=== PATIENT | female | born 1980 | race Caucasian/White ===

== ENCOUNTER 2018-03-29 11:28 | Outpatient (CLI) | payer OTHER ==
[2018-03-29 13:19] LABS: #Eosinphils 0.3 thou/uL (0.0-0.7); #Lymphocytes 2.3 thou/uL (1.20-3.40); #Monocytes 0.8 thou/uL (0.11-0.59); #Neutrophils 6.7 thou/uL (1.40-6.50); %Basophils 0.4 % (0.0-1.0); %Eosinophils 2.8 % (0.0-10.0); %Lymphocytes 22.8 % (21.0-51.0); %Monocytes 7.8 % (0.0-10.0); %Neutrophils 66.2 % (42.0-75.0); Hemoglobin 15.7 g/dL (12.0-16.0); Mean Corpuscular HGB CONC 33.9 g/dL (32.0-36.0); Mean Corpuscular Hemoglobin 31.3 pg (27.0-31.0); Mean Corpuscular Volume 92.5 fL (78.0-98.0); Mean Platelet Volume 7.4 fL (7.4-10.4); Platelet Count 355 thou/uL (130-400); RBC Distribution Width 11.7 % (11.5-14.5); Red Blood Cell (RBC) Count 5.02 mill/uL (4.20-5.40); White Blood Cell (WBC) Count 10.1 thou/uL (4.8-10.8)
[2018-03-29 13:25] LABS: BHCG - Serum Negative (NEGATIVE); Pregs Control Background? CLEAR/WHITE (CLR/WHITE); Pregs Control Bar Appear? YES (CONTROL BAR)
[2018-03-29 13:41] LABS: ALT (SGPT) 28 U/L (8-55); AST (SGOT) 24 U/L (5-34); Albumin 4.3 g/dL (3.5-5.0); Alkaline Phosphatase 56 U/L (40-150); Anion Gap 12 mmol/L (10-20); BUN (Urea Nitrogen) 8 mg/dL (7.0-18.7); Bilirubin, Total 0.5 mg/dL (0.2-1.2); Calc. Creatinine Clearance 0 mL/min (70-130); Calcium 9.8 mg/dL (7.8-10.44); Carbon Dioxide 26 mmol/L (22-29); Chloride 104 mmol/L (98-107); Estimated GFR-MDRD 86; Glucose 94 mg/dL (70-105); Protein, Total 7.3 g/dL (6.0-8.3); Sodium 138 mmol/L (136-145)
--- NOTE | 2018-03-29 13:53 | HP ---
HISTORY OF PRESENT ILLNESS: Alpa Funez is a 38-year-old female patient, Kesha Lindo, now wor helen from home after undergoing right foot reconstructive surgery. She is allergic to MORPHINE and C ODEINE and taking Percocet as alternate and was inadequate for her foot pain postoperatively. The pa renato has a history of cholelithiasis in 2008. Ultrasound demonstrating sludge, but now having intolerable symptoms, epigastric pain without back radiation. She recently had an MRI showing galls tones on MRI. Ultrasound was not repeated, it was suggested by Dr. Hayes, but the patient has not had this done because of the foot surgery . ALLERGIES: CODEINE, MORPHINE. SOCIAL HISTORY: Tobacco, half pack per day. Alcohol occasionally. PAST SURGICAL HISTORY: Right foot reconstruction, tonsillectomy. PAST MEDICAL HISTORY: Noncontributory. MEDICATIONS: Naproxen, Percocet. REVIEW OF SYSTEMS: Ten-point noncontributory. FAMILY HISTORY: Noncontributory. PHYSICAL EXAMINATION: VITAL SIGNS: 197 pounds, 68 inches, 30 BMI, 124/77, 79, 99.3 degrees. HEENT: Unremarkable. LUNGS: Clear to auscultation. CARDIAC: Regular rate and rhythm without murmur or gallop. ABDOMEN: Soft. Mild tenderness in his epigastrium. EXTREMITIES: Unremarkable, walking boot right foot. ASSESSMENT AND PLAN: Symptomatic cholelithiasis. Recommend laparoscopic video cholecystectomy. Ris k of infection, bleeding, visceral biliary injury discussed, possibly open procedure discussed. She understands risks, benefits, and consents. We will plan laparoscopic cholecystectomy.
== END 2018-03-29 11:29 | disposition home or self-care (01) ==
LOC: LABBT 11:28
PROVIDERS: ATTEND Specialist
DX: Z01.812 Encounter for preprocedural laboratory examination (principal); K80.00 Calculus of gallbladder with acute cholecystitis without obstruction
CPT/HCPCS: 80053; 84703; 85025

== ENCOUNTER 2018-03-30 09:06 | Day surgery (SDC) | payer OTHER ==
[2018-03-29 12:02] VITALS: BMI 29.7
[2018-03-30] MEDS ORDERED: Fentanyl 250 MCG/5 ML VIAL ONE (09:24)
[2018-03-30] MEDS ORDERED: CEFAZOLIN/Water 2 GM/20 ML SYRINGE ONE (09:52)
[2018-03-30] MEDS ORDERED: Ketorolac Tromethamine 30 MG/ML VIAL ONE (09:52)
[2018-03-30] MEDS ORDERED: Famotidine/PF 20 mg/2ml Vial ONE (10:32)
[2018-03-30] MEDS ORDERED: Midazolam HCl 2 mg/2 ml Vial ONE (10:32)
[2018-03-30] MEDS ORDERED: Bupivacaine HCl 0.5%/Epinephrine 1:200,000/PF 30 ml Vial ONE (12:24)
[2018-03-30] MEDS ORDERED: Fentanyl 100 MCG/2 ML VIAL ONE ×2 (13:46→14:14)
--- NOTE | 2018-03-30 13:56 | OP ---
DATE OF PROCEDURE: 03/30/2018 PREOPERATIVE DIAGNOSES: Chronic cholecystitis, cholelithiasis. POSTOPERATIVE DIAGNOSES: Chronic cholecystitis, cholelithiasis. PROCEDURE: Laparoscopic video cholecystectomy. SURGEON: Josse Last M.D. ANESTHESIA: General. Local 0.5% Marcaine with epinephrine 30 mL. PROCEDURE IN DETAIL: The patient was taken to the operating room where under general anesthesia, abd omen was prepared with ChloraPrep, draped in routine fashion. Local anesthetic infiltrated in the sk in and subcutaneous tissue about each port site. Infraumbilical incision made and pneumoperitoneum t o 15 mmHg obtained. Veress needle placed over the 5 port and video laparoscope inserted. Infraumbil ical incision made. Pneumoperitoneum to 15 mmHg obtained with the Veress needle, replacing it with a 5 port and video laparoscope inserted. Right subxiphoid incision made and 11 port placed. Right gutierrez bcostal incision made mid clavicular anterior axillary lines and 5 ports placed. Fundus of gallbladd er grasped and reflected cephalad. Infundibulum grasped reflected laterally. Cystic artery and duct dissected free. Critical view obtained. Cystic artery and duct doubly clipped proximally, divided, and gallbladder dissected free obtaining good hemostasis prior to division of final peritoneal attac hments. Gallbladder and contents, large stone removed requiring fragmentation of the stone, removed the gallbladder. Good hemostasis ensured with the cautery. Irrigant and pneumoperitoneum evacuated. All instruments removed and all skin incisions approximated with interrupted subdermal 4-0 Monocryl and DermaGlue applied.
== END 2018-03-30 15:34 | disposition home or self-care (01) ==
LOC: SDC 09:06
PROVIDERS: ATTEND Specialist
PROC: 0FT44ZZ Resection of Gallbladder, Percutaneous Endoscopic Approach (ICD-10-PCS; principal; 2018-03-30)
DX: K80.10 Calculus of gallbladder with chronic cholecystitis without obstruction (principal); F17.200 Nicotine dependence, unspecified, uncomplicated; Z88.5 Allergy status to narcotic agent
CPT/HCPCS: 80053; 84703; 85025; 88304; 96374; 96376; J0131; J0670; J1885; J2250; J3010; S0028